=== PATIENT | female | born 1975 | race African-American/Black ===

== ENCOUNTER 2019-09-05 13:14 | Emergency (ER) | payer MEDICAID ==
[~2019-09-05] VITALS: Ht 180.3 cm; Wt 149.1 kg
[2019-09-05] MEDS ORDERED: FLUT1BLS IH (13:23)
[2019-09-05] MEDS ORDERED: IPRA4AER IH (13:23)
[2019-09-05 13:48] VITALS: BP 144/78
== END 2019-09-05 14:03 | disposition home or self-care (01) ==
LOC: EMS 13:18
DX: J44.9 Chronic obstructive pulmonary disease, unspecified (principal); Z88.8 Allergy status to other drugs, medicaments and biological substances

== ENCOUNTER 2021-06-26 15:23 | Emergency (ER) | payer MEDICAID ==
[~2021-06-26] VITALS: Ht 180.3 cm; Wt 154.6 kg
[~2021-06-26 15:23] MED LIST: FLUT1BLS IH; IPRA4AER IH
[2021-06-26] MEDS ORDERED: FLUT1BLS15 IH (15:34)
[2021-06-26 16:03] VITALS: BP 122/55
[2021-06-26] MEDS ORDERED: PRED-554 PO ×2 (16:34→18:48)
[2021-06-26] MEDS ORDERED: PROM473S4 PO ×2 (16:34→18:48)
== END 2021-06-26 16:44 | disposition home or self-care (01) ==
LOC: EMS 15:23
DX: R05.9 Cough, unspecified (principal); J44.9 Chronic obstructive pulmonary disease, unspecified; Z88.8 Allergy status to other drugs, medicaments and biological substances; Z79.899 Other long term (current) drug therapy
CPT/HCPCS: 99283

== ENCOUNTER 2021-09-16 12:22 | Emergency (ER) | payer MEDICAID ==
[~2021-09-16] VITALS: Ht 177.8 cm; Wt 118.2 kg
[~2021-09-16 12:22] MED LIST changes: -FLUT1BLS IH; +FLUT1BLS15 IH; +PRED-554 PO; +PROM473S4 PO
[2021-09-16 12:33] VITALS: BP 129/69
[2021-09-16] MEDS ORDERED: A20IH1 NEB (12:34)
== END 2021-09-16 13:07 | disposition home or self-care (01) ==
LOC: EMS 12:23
DX: J20.9 Acute bronchitis, unspecified (principal); F10.20 Alcohol dependence, uncomplicated; J44.9 Chronic obstructive pulmonary disease, unspecified; Z88.8 Allergy status to other drugs, medicaments and biological substances; Z20.822 Contact with and (suspected) exposure to COVID-19
CPT/HCPCS: 99283

== ENCOUNTER 2021-11-21 12:09 | Emergency (ER) | payer SELFPAY ==
[~2021-11-21] VITALS: Ht 180.3 cm; Wt 148.2 kg
[~2021-11-21 12:09] MED LIST changes: +A20IH1 NEB
[2021-11-21 12:27] VITALS: BP 145/85
[2021-11-21] MEDS ORDERED: PRED-554 PO (13:07)
[2021-11-21] MEDS ORDERED: PROM473S4 PO (13:07)
== END 2021-11-21 13:15 | disposition home or self-care (01) ==
LOC: EMS 12:16
DX: J40 Bronchitis, not specified as acute or chronic (principal); J42 Unspecified chronic bronchitis; Z88.9 Allergy status to unspecified drugs, medicaments and biological substances; Z88.8 Allergy status to other drugs, medicaments and biological substances; Z98.890 Other specified postprocedural states
CPT/HCPCS: 99281; 99283

== ENCOUNTER 2022-02-13 12:37 | Emergency (ER) | payer SELFPAY ==
[~2022-02-13] VITALS: Ht 180.3 cm; Wt 157.3 kg
[2022-02-13] MEDS ORDERED: PROM473S4 PO ×3 (13:13→14:13)
[2022-02-13] MEDS ORDERED: PRED-554 PO ×2 (13:16→14:14)
[2022-02-13] MEDS ORDERED: D-ME473S53 PO (13:18)
[2022-02-13 14:00] VITALS: BP 121/78
== END 2022-02-13 14:25 | disposition home or self-care (01) ==
LOC: EMS 12:37
DX: J44.9 Chronic obstructive pulmonary disease, unspecified (principal); F10.20 Alcohol dependence, uncomplicated; Z88.5 Allergy status to narcotic agent
CPT/HCPCS: 99283; Z7502

== ENCOUNTER 2023-03-31 10:43 | Emergency (ER) | payer MEDICAID ==
[~2023-03-31] VITALS: Ht 175.3 cm; Wt 131.4 kg
[2023-03-31 11:33] VITALS: BP 151/92; PULSE 63; RESP 18; TEMP 98.6
== END 2023-03-31 11:57 | disposition home or self-care (01) ==
LOC: EMS 10:43
DX: R05.9 Cough, unspecified (principal); J44.9 Chronic obstructive pulmonary disease, unspecified; Z87.891 Personal history of nicotine dependence; Z98.890 Other specified postprocedural states; Z88.8 Allergy status to other drugs, medicaments and biological substances
CPT/HCPCS: 99281; Z7502